=== PATIENT | male | born 1985 | race Caucasian/White ===

== ENCOUNTER 2017-03-12 11:08 | Emergency (ER) | payer SELFPAY ==
[~2017-03-12] VITALS: Ht 182.9 cm; Wt 114.4 kg
[~2017-03-12 11:08] MED LIST: DEPA500T PO; LEVE500 PO; PERC5TAB12 PO; TAMS5CAP PO; ZOFR4TAB3 SL
[2017-03-12 11:19] VITALS: BP 137/69; PULSE 75; RESP 16; TEMP 98; O2SAT 98
--- NOTE | 2017-03-12 11:57 | PD ---
HPI Chief Complaint: Musculoskeletal Complaint Time Seen by Provider: 11:53 Travel History International Travel<30 days: No Contact w/Intl Traveler<30days: No Traveled to known affect area: No History of Present Illness HPI 31-year-old male here with right wrist pain since this morning. Patient reports while pushing himself and that he felt a crack within the wrist and now has pain. Pain is constant worse with movement and relieved with rest. He denies paresthesia or weakness of the extremity. Symptom severity is moderate. PFSH Past Medical History Arthritis: Yes Asthma: Yes (as a child) Autoimmune Disease: No Blood Disorders: No Anxiety: Yes Heart Rhythm Problems: No Cancer: No Cardiovascular Problems: No Chest Pain: No COPD: No Coronary Artery Disease: No Cystic Fibrosis: No Diminished Hearing: No Endocrine: No Gastrointestinal Disorders: No Genitourinary: No Headaches: Yes Hypertension: No Immune Disorder: No Implanted Vascular Access Dvce: No Kidney Stones: Yes Musculoskeletal: No Neurologic: Yes Psychiatric: No Reproductive: No Respiratory: Yes (Asthma as child ) Immunizations Current: Yes Pneumonia: Yes (2014) Seizures: Yes (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 SHOULDER ROTATOR CUFFS) Neurologic Surgery: No Oral Surgery: No Thoracic Surgery: No Other Surgery: Yes Social History Alcohol Use: No Tobacco Use: Yes (1.5 PPD) Substance Use: Yes (IVDA: JULY 2015 (ROXICODONE), STILL SMOKE WEED) Allergies-Medications (Allergen,Severity, Reaction): Coded Allergies: lamotrigine (Unverified Allergy, Intermediate, Swelling, 03/12/17) topiramate (Unverified Allergy, Mild, RASH, 03/12/17) Reported Meds & Prescriptions Reported Meds & Active Scripts Active Ibuprofen 800 Mg Tab 800 Mg PO Q6HR PRN Zofran Odt (Ondansetron Odt) 4 Mg Tab 4 Mg SL Q6HR PRN Percocet (Oxycodone-Acetaminophen) 5-325 mg Tab 1 Tab PO Q6H PRN Flomax (Tamsulosin HCl) 0.4 Mg Cap 0.4 Mg PO HS Reported Keppra (Levetiracetam) 500 Mg Tab 500 Mg PO BID Depakote DR (Divalproex Sodium) 500 Mg Tabdr 500 Mg PO BID Review of Systems Except as stated in HPI: all other systems reviewed are Neg Physical Exam Narrative GENERAL: Alert and well-appearing male. SKIN: Warm and dry. HEAD: Normocephalic. EYES: No injection or drainage. NECK: Supple, trachea midline. No JVD or lymphadenopathy. MUSCULOSKELETAL: No cyanosis. Right upper extremity: Notable tenderness to the right wrist. No deformity. 2+ radial pulse. Limited extension and flexion due to pain. Normal sensation in the fingers. Brisk cap refill. Data Data Last Documented VS Vital Signs Date Time Temp Pulse Resp B/P (MAP) Pulse Ox O2 Delivery O2 Flow Rate FiO2 03/12/17 11:19 98.0 75 16 137/69 (91) 98 Orders Orders Wrist, Complete ([id number]) (03/12/17 ) Ed Discharge Order (03/12/17 12:45) MDM Medical Decision Making Medical Screen Exam Complete: Yes Emergency Medical Condition: Yes Differential Diagnosis Wrist sprain, wrist fracture, tendinitis Narrative Course 31-year-old male here with right wrist pain. The extremity is neurovascularly intact. X-ray right wrist: Negative for fracture Diagnosis Primary Impression: Wrist pain Qualified Codes: M25.531 - Pain in right wrist Referrals: Primary Care Physician Departure Forms: Tests/Procedures, Work Release Enter return to work date: Mar 13, 2017 Additional Instructions: Department as needed for pain. Rest, ice, elevate the family. Avoid heavy lifting or strenuous activity. Follow-up with your doctor. Scripts Ibuprofen (Ibuprofen) 800 Mg Tab 800 MG PO Q6HR Y for PAIN, #40 TAB 0 Refills Prov: Candelaria Bingham 03/12/17 Disposition: 01 DISCHARGE HOME Condition: Stable Candelaria Bingham Mar 12, 2017 11:57
--- NOTE | 2017-03-12 12:34 | RADRPT ---
EXAM DATE/TIME: 03/12/2017 12:21 [facility] COMPARISON: No previous studies available for comparison. INDICATIONS : [place] a pop in right wrist this AM, has pain, limited ROM MEDICAL HISTORY : epilepsy SURGICAL HISTORY : Bilateral shoulders ENCOUNTER: Initial ACUITY: 1 day PAIN SCORE: 6/10 LOCATION: Right wrist FINDINGS: No definite fractures, or dislocations are identified. No definite lytic or sclerotic lesion is seen . The joint spaces are well maintained. CONCLUSION: Unremarkable study. Karen De Dios MD on March 12, 2017 at 12:31 Board Certified Radiologist. This report was verified electronically.
[2017-03-12] MEDS ORDERED: IBUP1TAB7 PO (12:44)
== END 2017-03-12 13:37 | disposition home or self-care (01) ==
LOC: PHEFT 11:08
DX: M25.531 Pain in right wrist (principal); F41.9 Anxiety disorder, unspecified; G40.909 Epilepsy, unspecified, not intractable, without status epilepticus; F17.210 Nicotine dependence, cigarettes, uncomplicated; F12.90 Cannabis use, unspecified, uncomplicated; X50.9XXA Other and unspecified overexertion or strenuous movements or postures, initial encounter; Z87.442 Personal history of urinary calculi
CPT/HCPCS: 73110; 99283

== ENCOUNTER 2017-05-14 11:59 | Emergency (ER) | payer SELFPAY ==
[~2017-05-14] VITALS: Ht 182.9 cm; Wt 115.0 kg
[~2017-05-14 11:59] MED LIST changes: +IBUP1TAB7 PO
[2017-05-14 12:04] VITALS: BP 148/79; PULSE 89; RESP 16; TEMP 98.9; O2SAT 96
--- NOTE | 2017-05-14 13:26 | PD ---
HPI Chief Complaint: Seizure Time Seen by Provider: 13:08 Travel History International Travel<30 days: No Contact w/Intl Traveler<30days: No Traveled to known affect area: No History of Present Illness HPI 31yo M with PMH of epilepsy on keppra 500mg BID here with multiple complaints s/ p seizure today. Pt had forgot his keppra last night and missed his dose this morning as well since he was sleeping. He had a seizure and fell off his bed and hit the concrete floor. Girlfriend heard him and he was seizing for about 1 minute. Pt had no visual changes after but now his right upper eyelid is swollen shut and he is unable to open his right eye. Denies any eye pain. Pt is complaining of right shoulder pain where he had multiple surgeries before as well as left wrist pain. Denies any chest pain, sob, n/v, abdominal pain, focal weakness or numbness. Pt was post ictal for about 30 minutes but is now back to baseline. PFSH Past Medical History Arthritis: Yes Asthma: Yes (as a child) Autoimmune Disease: No Blood Disorders: No Anxiety: Yes Heart Rhythm Problems: No Cancer: No Cardiovascular Problems: No Chest Pain: No COPD: No Coronary Artery Disease: No Cystic Fibrosis: No Diminished Hearing: No Endocrine: No Gastrointestinal Disorders: No Genitourinary: No Headaches: Yes Hypertension: No Immune Disorder: No Implanted Vascular Access Dvce: No Kidney Stones: Yes Musculoskeletal: No Neurologic: Yes Psychiatric: No Reproductive: No Respiratory: Yes (Asthma as child ) Immunizations Current: Yes Pneumonia: Yes (2014) Seizures: Yes (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 SHOULDER ROTATOR CUFFS) Neurologic Surgery: No Oral Surgery: No Thoracic Surgery: No Other Surgery: Yes Social History Alcohol Use: No Tobacco Use: Yes (1.5 PPD) Substance Use: Yes (IVDA: JULY 2015 (ROXICODONE), STILL SMOKE WEED) Allergies-Medications (Allergen,Severity, Reaction): Coded Allergies: lamotrigine (Unverified Allergy, Intermediate, Swelling, 05/14/17) topiramate (Unverified Allergy, Mild, RASH, 05/14/17) Reported Meds & Prescriptions Reported Meds & Active Scripts Active Reported Keppra (Levetiracetam) 500 Mg Tab 500 Mg PO BID Review of Systems Except as stated in HPI: all other systems reviewed are Neg Physical Exam Narrative GENERAL: 31yo M in mild distress. SKIN: Focused skin assessment warm/dry. HEAD: Atraumatic. Normocephalic. EYES: Pupils equal and round. No scleral icterus. No injection or drainage. ENT: No nasal bleeding or discharge. Mucous membranes pink and moist. NECK: Trachea midline. No JVD. CARDIOVASCULAR: Regular rate and rhythm. No murmur appreciated. RESPIRATORY: No accessory muscle use. Clear to auscultation. Breath sounds equal bilaterally. GASTROINTESTINAL: Abdomen soft, non-tender, nondistended. MUSCULOSKELETAL: Right shoulder: +TTP. +Old surgical scar. Decreased ROM but he had that before the seizure. Sensation intact. Distal pulses intact. LUE: +Erythema and ttp distal radius. Radial pulse 2+. Sensation intact. Mild erythema dorsum of base of 1-3 metacarpal. FROM in all digits. NEUROLOGICAL: Awake and alert. No obvious cranial nerve deficits. Motor grossly within normal limits. Normal speech. PSYCHIATRIC: Appropriate mood and affect; insight and judgment normal. Data Data Last Documented VS Vital Signs Date Time Temp Pulse Resp B/P (MAP) Pulse Ox O2 Delivery O2 Flow Rate FiO2 05/14/17 12:04 98.9 89 16 148/79 (102) [address] Brain W/O Iv Contrast(Rout) (05/14/17 ) Shoulder, Limited(2vws) (05/14/17 ) Wrist, Limited (Ap&Lat) (05/14/17 ) Levetiracetam (Keppra) (05/14/17 13:30) Oxycodone-Acetamin 5-325 Mg (Percocet (05/14/17 13:30) Lidocaine 1% Inj (Xylocaine 1% Inj) (05/14/17 13:30) Ed Poc Ultrasound (05/14/17 ) MDM Medical Decision Making Medical Screen Exam Complete: Yes Emergency Medical Condition: Yes Differential Diagnosis Seizure secondary to noncompliant vs. ICH vs. fracture Narrative Course 31yo M with head trauma after falling off the bed while having a seizure. Pt forgot to take 2 doses of his keppra and said he usually gets seizure if he forgets his medications. CT brain showed no acute intracranial abnormality. Subgaleal hematoma along the right frontal skull as well as prespetal orbital soft tissue swelling on the right. Xray right shoulder showed no acute fracture or dislocation. Narrowing of the right subacromial space suggesting rotator cuff pathology. Xray left wrist showed no acute fracture or dislocation. Old healed fracture of left fifth metacarpal is noted. Pt had tenderness to palpation in scaphoid but is refusing splint at this time. Said he will follow up with his pain continues. US of right eye normal. Pt given keppra and pain medication here. Pain is control and pt wants to go home. Laceration repaired by my PA. Pt has keppra at home and does not need prescription. Return precautions given. Procedures Procedure Narrative Emergency department ocular ultrasound was performed with patient consent. Linear probe was used in right eye in the transverse and sagittal views of the orbit without evidence of retinal detachment, vitreous hemorrhage, or lens dislocation. Diagnosis Primary Impression: Seizure disorder Additional Impression: Head injury Qualified Codes: S09.90XA - Unspecified injury of head, initial encounter Patient Instructions: General Instructions Departure Forms: Tests/Procedures Additional Instructions: Please follow up with your primary care physician in 3-7days. Please have your sutures remove at PMD or ED in 5 days. Return to the ED if symptoms worsen. Med/Other Pt SpecificInfo: Prescription(s) given Scripts Acetaminophen (Tylenol) 325 Mg Tab 650 MG PO Q6H Y for PAIN SCALE 1 TO 4, #20 TAB 0 Refills Prov: Tamara Domínguez 05/14/17 Disposition: 01 DISCHARGE HOME Condition: Stable Tamara Domínguez DO May 14, 2017 13:26
[2017-05-14] MEDS ORDERED: oxyCODONE/ACETAMINOPHEN 5 MG/325 MG TAB PO ONE (13:30)
[2017-05-14] MEDS ORDERED: LIDOCAINE HCL 1% 20 ML VIAL INFIL ONE (13:30)
[2017-05-14] MEDS ORDERED: levETIRAcetam 500 MG TAB PO ONE (13:30)
--- NOTE | 2017-05-14 13:56 | RADRPT ---
EXAM DATE/TIME: 05/14/2017 13:35 [facility] COMPARISON: No previous studies available for comparison. INDICATIONS : Fall. Right shoulder pain. MEDICAL HISTORY : None. SURGICAL HISTORY : None. ENCOUNTER: Initial ACUITY: 1 day PAIN SCORE: 7/10 LOCATION: Right scapular FINDINGS: Multiple screws are noted within the right humeral head status post previous surgery. There is no acu te fracture or dislocation. There is narrowing of the right subacromial space which may be related to rotator cuff pathology. CONCLUSION: 1. No acute fracture or dislocation. 2. Narrowing of the right subacromial space suggesting rotator cuff pathology. Jose Guerrier MD on May 14, 2017 at 13:52 Board Certified Radiologist. This report was verified electronically.
--- NOTE | 2017-05-14 13:59 | RADRPT ---
EXAM DATE/TIME: 05/14/2017 13:41 [facility] COMPARISON: No previous studies available for comparison. INDICATIONS : Fall. Left wrist pain. MEDICAL HISTORY : None. SURGICAL HISTORY : None. ENCOUNTER: Initial ACUITY: 1 day PAIN SCORE: 6/10 LOCATION: Left upper extremity FINDINGS: Two view examination of the left wrist demonstrates no soft tissue swelling, dislocation, or fracture . There is an old healed fracture of the left fifth metacarpal The joint spaces are maintained. Bon y mineralization is normal. CONCLUSION: No acute fracture or dislocation. Old healed fracture of the left fifth metacarpal is noted the Jose Guerrier MD on May 14, 2017 at 13:55 Board Certified Radiologist. This report was verified electronically.
--- NOTE | 2017-05-14 14:02 | RADRPT ---
EXAM DATE/TIME: 05/14/2017 13:44 [facility] COMPARISON: No previous studies available for comparison. INDICATIONS : Seizure. Right frontal swelling and contusion. RADIATION DOSE: 54.67 CTDIvol (mGy) MEDICAL HISTORY : Seizures. Epilepsy. SURGICAL HISTORY : None. ENCOUNTER: Initial ACUITY: 1 day PAIN SCALE: 2/10 LOCATION: Right frontal TECHNIQUE: Multiple contiguous axial images were obtained of the head. Using automated exposure control and adj ustment of the mA and/or kV according to patient size, radiation dose was kept as low as reasonably a chievable to obtain optimal diagnostic quality images. DICOM format image data is available electro nically for review and comparison. FINDINGS: CEREBRUM: The ventricles are normal for age. No evidence of midline shift, mass lesion, hemorrhage or acute in farction. No extra-axial fluid collections are seen. POSTERIOR FOSSA: The cerebellum and brainstem are intact. The 4th ventricle is midline. The cerebellopontine angle i s unremarkable. EXTRACRANIAL: There is a subgaleal hematoma along the right frontal skull as well as preseptal orbital soft tissue swelling on the right. Mucous retention cysts are noted within the left frontal sinus. SKULL: The calvaria is intact. No evidence of skull fracture. CONCLUSION: No acute intracranial abnormality. Subgaleal hematoma along the right frontal skull a s well as preseptal orbital soft tissue swelling on the right. Mucous retention cysts within the left frontal sinus. Jose Guerrier MD on May 14, 2017 at 13:56 Board Certified Radiologist. This report was verified electronically.
--- NOTE | 2017-05-14 14:49 | PD ---
Physical Exam Narrative I was asked by my attending physician to perform laceration repair of patient's right forehead laceration. Please see Dr. Domínguez note for full history and physical. Data Data Last Documented VS Vital Signs Date Time Temp Pulse Resp B/P (MAP) Pulse Ox O2 Delivery O2 Flow Rate FiO2 05/14/17 12:04 98.9 89 16 148/79 (102) [address] Brain W/O Iv Contrast(Rout) (05/14/17 ) Shoulder, Limited(2vws) (05/14/17 ) Wrist, Limited (Ap&Lat) (05/14/17 ) Levetiracetam (Keppra) (05/14/17 13:30) Oxycodone-Acetamin 5-325 Mg (Percocet (05/14/17 13:30) Lidocaine 1% Inj (Xylocaine 1% Inj) (05/14/17 13:30) Ed Poc Ultrasound (05/14/17 ) MDM Supervised Visit with MENA: Yes Procedures Procedure Narrative LACERATION LOCATION: Right side of forehead above the brow LENGTH: 2.5CM NUMBER OF STITCHES/TE: 6 REPAIR: The area of the laceration was prepped with Betadine and sterilely draped. The laceration was infiltrated with 1% lidocaine. The wound was copiously irrigated and explored without evidence of foreign body, tendon injury or neurovascular injury. The wound was closed using 6-0 Ethilon. This was a SINGLE layer repair. The patient was advised to keep the dressing clean and dry. Patient tolerated the procedure well. Candelaria Bingham May 14, 2017 14:48
[2017-05-14] MEDS ORDERED: TYLE325T PO (14:55)
[2017-05-14 15:03] VITALS: BP 141/70; PULSE 72; RESP 18; O2SAT 99
[2017-05-14 15:04] VITALS: RESP 18
== END 2017-05-14 15:05 | disposition home or self-care (01) ==
LOC: PHED 11:59 → PHEFT 15:05
DX: S01.81XA Laceration without foreign body of other part of head, initial encounter (principal); S09.90XA Unspecified injury of head, initial encounter; M25.511 Pain in right shoulder; M25.532 Pain in left wrist; G40.909 Epilepsy, unspecified, not intractable, without status epilepticus; M19.90 Unspecified osteoarthritis, unspecified site; J45.909 Unspecified asthma, uncomplicated; F41.9 Anxiety disorder, unspecified; W06.XXXA Fall from bed, initial encounter
CPT/HCPCS: 12011; 70450; 73030; 73100